=== PATIENT | male | born 2000 | race Caucasian/White ===

== ENCOUNTER 2020-01-27 15:20 | Emergency (ER) | payer SELFPAY ==
[2020-01-27 15:33] VITALS: BP 98/68; PULSE 83; RESP 16; TEMP 36.5; O2SAT 97; BMI 19.1
[2020-01-27 15:36] VITALS: BP 104/65; PULSE 74; RESP 16; TEMP 36.4; O2SAT 97
--- NOTE | 2020-01-27 15:40 | XRR_ITS ---
PROCEDURE INFORMATION: Exam: XR Chest, 1 View Exam date and time: 01/27/2020 4:00 PM Age: 19 years old Clinical indication: Cough and dyspnea; Additional info: Dyspnea/cough TECHNIQUE: Imaging protocol: XR of the chest Views: 1 view. COMPARISON: CR Chest 2 views* [id number] 07/23/2015 11:30 AM FINDINGS: Lungs: Unremarkable. No consolidation. Pleural space: Unremarkable. No pleural effusion. No pneumothorax. Heart/Mediastinum: Unremarkable. No cardiomegaly. Bones/joints: No acute abnormality. XR/XR chest 1V portable [id number] IMPRESSION: No acute findings.
[2020-01-27 16:00] LABS: Rapid Strep A Test Negative (Negative)
--- NOTE | 2020-01-27 17:26 | W.ED.GENADLT ---
HPI - General Adult General: Chief complaint: Upper Respiratory Infection Stated complaint: pain and swlling in tonsils Time Seen by Provider: 01/27/20 17:25 History of Present Illness: HPI narrative: Sore throat for last couple days and abscessed tooth in the right side MD complaint: Colitis Onset (ago): day(s) Radiation: non-radiation Severity: moderate Quality: aching Pain Consistency: constant Relieving factors: none Exacerbating factors: eating Associated symptoms: Reports no associated symptoms; Deny chest pain, diaphoresis, dyspnea, headache(s), nausea, rash, palpitations or vomiting Review of Systems General: Reports: 10 or more systems reviewed and unremarkable except in HPI and below Const: Denies: fever(s), chills or diaphoresis Eyes: Denies: blurry vision or eye redness ENMT: Reports: throat pain, enlarged tonsils, odynophagia and other (Dental abscess); Denies: dental pain or disequilibrium Card: Denies: chest pain, palpitations or irregular heart rhythm Resp: Denies: dyspnea, productive cough, non-productive cough or wheezing GI: Denies: abdominal pain, nausea or vomiting : Denies: dysuria Musc: Denies: back pain Skin/Breast: Denies: rash or pruritus Neuro: Denies: headache(s), weakness in extremities or behavioral changes Jose Roberto/Lymph: Denies: easy bruising Physical Exam Const: COMMON NORMALS: no acute distress, patient oriented x3, healthy appearing and alert GENERAL APPEARANCE: cooperative, comfortable and well hydrated HENMT: COMMON NORMALS: normocephalic, Normal external nose present and moist oral mucous membranes HEAD & SCALP: normocephalic NOSE: Normal external nose present TEETH & GINGIVA IMAGES: 1. Abscessed tooth with dental caries THROAT: abnormal tonsil bilateral exudates and hypertrophy Eye: COMMON NORMALS: Equal, round and reactive pupils present and EOMs intact bilaterally GENERAL EYE: appearance normal, both eyes and all related structures PUPIL: Yes Equal, round and reactive pupils present Neck/C-Spine: COMMON NORMALS: full ROM and no lymphadenopathy GENERAL: Yes normal visual inspection and Yes trachea midline CERVICAL SPINE: Yes cervical ROM normal Lymph: LYMPHATIC: no lymphadenopathy noted Chest: COMMONS NORMALS: normal inspection of the chest Resp: COMMON NORMALS: normal respiratory effort and clear to auscultation bilaterally AUSCULTATION: clear to auscultation bilaterally Cardio: COMMON NORMALS: regular rhythm, S1 normal heart sound present and S2 normal heart sound present RHYTHM: regular rhythm HEART SOUNDS: S1 normal heart sound present and S2 normal heart sound present GI: COMMON NORMALS: Soft to palpation and non-tender INSPECTION: Yes normal to inspection PALPATION: Yes Soft to palpation : COMMON NORMALS: Yes no CVA tenderness BLADDER/KIDNEY EXAM: Yes no CVA tenderness Back/Pelvis: COMMON NORMALS: no CVA tenderness and thoracic and lumbar spine normal to inspection Extremity: COMMON NORMALS: normal to inspection and capillary refill normal Neuro: COMMON NORMALS: patient oriented x3 and no focal motor deficits SENSORIUM/ORIENTATION: Yes alert Psych: COMMON NORMALS: mental status grossly normal, Normal thought process present and cooperative ACTIVITY/MOTOR BEHAVIOR: Yes appropriate eye contact THOUGHT PROCESS: Normal thought process present Skin: COMMON NORMALS: no rashes or lesions noted and turgor normal GENERAL SKIN EXAM: no rashes or lesions noted and turgor normal Course Vital Signs: Vital signs: Vital Signs Temperature 97.6 F 01/27/20 17:58 Pulse Rate 74 01/27/20 17:58 Respiratory Rate 16 01/27/20 17:58 Blood Pressure 104/65 01/27/20 17:58 Pulse Oximetry 97 01/27/20 17:58 MDM - General Adult Lab Data: Labs: Lab Results 01/27/20 Range/Units 15:36 Group A Strep Rapi d Negative (Negative) Discharge Plan Discharge Patient Disposition: Home Clinical Impression: Dental abscess Acute tonsillitis Qualifiers: Pharyngitis/tonsillitis etiology: unspecified etiology Qualified Code(s): J03.90 - Acute tonsillitis, unspecified Condition: Stable Prescriptions: New Medrol (Chris) 4 mg tablets,dose pack See Rx Instructions .ROUTE .COMPLEX Qty: 21 RF: 0 clindamycin HCl 300 mg capsule 300 mg PO TID 7 Days Qty: 21 RF: 0 Discharge Orders: Discharge Order (Routine); Ordered 01/27/20 Ordered By: Thad Harper Discharge Diet: Usual diet Discharge Activity: Increase activity as tolerated Patient Instructions: Dental Abscess (ED), Tonsillitis (ED) Activity Restrictions/Additional Instructions: follow up with your health care provider if no improvement Stand Alone Forms: Work/School Release Discharge Date/Time: 01/27/20 17:53 Coding Level of Care Code ED Laboratory Equipment Cleaner for Chg Fwd Exam Comprehensive
[2020-01-27] MEDS: predniSONE 20 mg Tablet 60 MG PO (17:50)
[2020-01-27] MEDS: TRAMadol 50 mg Tablet PO (17:51)
[2020-01-27] MEDS: clindamycin 150 mg Capsule 300 MG PO (17:51)
[2020-01-27 17:58] VITALS: BP 104/65; PULSE 74; RESP 16; TEMP 36.4; O2SAT 97
== END 2020-01-27 17:53 | disposition home or self-care (01) ==
PROVIDERS: Emergency Medicine; Emergency Provider Nurse Practitioner Family
DX: J03.90 Acute tonsillitis, unspecified (principal); K04.7 Periapical abscess without sinus
CPT/HCPCS: 12345; 71045; 87081; 87880; 99282; 99283; J7512